=== PATIENT | female | born 1995 ===

== ENCOUNTER 2017-01-26 05:45 | Emergency (ER) | payer OTHER ==
[2017-01-26 06:01] VITALS: RESP 18
--- NOTE | 2017-01-26 06:28 | C.PDOC ---
History Of Present Illness 21 yo female c/o back pain for the last 1 hour. 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 Pain is aggravated by movement. No h/o back pain. No dysuria, urinary frequency or fever. no change in sensation, urinary or bowel incontinence. Time Seen by Provider: 01/26/17 05:54 Chief Complaint (Nursing): Back Pain History Per: Patient History/Exam Limitations: no limitations Onset/Duration Of Symptoms: Hrs Current Symptoms Are (Timing): Still Present Quality Of Discomfort: "Pain" Associated Symptoms: denies: Incontinence, New Weakness, New Numbness Exacerbating Factor(s): Movement Past Medical History Vital Signs: Last Vital Signs Temp 97.9 F 01/26/17 05:50 Pulse 71 01/26/17 05:50 Resp 18 01/26/17 05:50 BP 130/72 01/26/17 05:50 Pulse Ox 99 01/26/17 06:31 Family History: States: Unknown Family Hx - Social History Hx Alcohol Use: No Hx Substance Use: No - Immunization History Hx Tetanus Toxoid Vaccination: No Hx Influenza Vaccination: No Hx Pneumococcal Vaccination: No Review Of Systems Except As Marked, All Systems Reviewed And Found Negative. Constitutional: Negative for: Fever Gastrointestinal: Negative for: Abdominal Pain Genitourinary: Negative for: Dysuria, Frequency Physical Exam - Physical Exam Appears: Well, Non-toxic, Other (tearful, uncomfortable) Skin: Normal Color, Warm, Dry Head: Atraumatic, Normacephalic Eye(s): bilateral: Normal Inspection, EOMI Nose: Normal Oral Mucosa: Moist Neck: Normal, Normal ROM, Supple Chest: Symmetrical Cardiovascular: Rhythm Regular Respiratory: Normal Breath Sounds Gastrointestinal/Abdominal: Normal Exam, Soft, No Tenderness Back: No CVA Tenderness, No Vertebral Tenderness, Paraspinal Tenderness (lower paralumbar) Extremity: Normal ROM Neurological/Psych: Oriented x3, Normal Speech, Normal Motor, Normal Sensation ED Course And Treatment O2 Sat by Pulse Oximetry: 99 - Other Rad l/s XR X-Ray: Interpreted by Me, Viewed By Me Interpretation: no fx or dislocation Progress Note: On re-evaluation, pt notes pain has improved. Steady gait. No change in sensation. No urinary or bowel incontencine. Discussed with pt outpt follow up for possible MRI. Case discussed with Dr Aldana, agreed upon treatment and discharge. Disposition - Disposition Referrals: [facility] [Outside] Disposition: HOME/ ROUTINE Disposition Time: 06:54 Condition: STABLE Additional Instructions: Follow up with your doctor in 1-2 days. Return to ER if symptoms persist or worsen. Prescriptions: Cyclobenzaprine [Cyclobenzaprine HCl] 10 mg PO TID #20 tab Naproxen [Naprosyn] 1 tab PO BID PRN #20 tab PRN Reason: Pain Instructions: Acute Low Back Pain (ED) Forms: [facility] ([place]) - Clinical Impression Clinical Impression: Low back pain
[2017-01-26 07:11] VITALS: BP 125/69; PULSE 78; TEMP 98.1; O2SAT 96
--- NOTE | 2017-01-26 08:06 | RAD ---
PROCEDURE: Radiographs of the Lumbar Spine. HISTORY: pain COMPARISON: No prior. FINDINGS: BONES: Normal alignment. No listhesis. No fracture. DISC SPACES: Unremarkable. OTHER FINDINGS: None. IMPRESSION: Unremarkable radiographs of the lumbar spine.
== END 2017-01-26 07:13 | disposition home or self-care (01) ==
LOC: C.ER 05:45
DX: M54.5 Low back pain (principal)
CPT/HCPCS: 72100; 96372; 99284; J1885